=== PATIENT | male | born 1940 | race African-American/Black ===

== ENCOUNTER 2019-12-01 15:57 | Emergency (ER) | payer OTHER ==
[~2019-12-01] VITALS: Ht 154.9 cm; Wt 64.0 kg
[2019-12-01 16:01] VITALS: BP 126/58
== END 2019-12-01 17:17 | disposition left against medical advice (07) ==
LOC: ER 15:57
DX: Z53.21 Procedure and treatment not carried out due to patient leaving prior to being seen by health care provider (principal)